=== PATIENT | female | born 1985 | race Caucasian/White ===

== ENCOUNTER 2020-01-29 15:38 | Emergency (ER) | payer OTHER ==
[2020-01-29 15:45] VITALS: TEMP 97.3; BMI 25.9
[2020-01-29] MEDS ORDERED: ACETAMINOPHEN 1000 MG/100 ML VIAL (NON FORMULARY) IVPB ONE (16:09)
[2020-01-29] MEDS ORDERED: ONDANSETRON 4 MG/2 ML VIAL IVPUSH ONE (16:10)
[2020-01-29] MEDS ORDERED: SODIUM CHLORIDE 0.9% 500 ML INFUS.BAG IV ONE (16:12)
[2020-01-29 16:31] LABS: HCG,QUALITATIVE URINE Positive
[2020-01-29 16:33] LABS: EPI CELLS 22 /uL (0-25.1); HYALINE CASTS 1 /uL (0-3.1); URINE APPEARANCE CLEAR; URINE BACTERIA 175 /uL (0-1359); URINE BILIRUBIN NEGATIVE (NEGATIVE); URINE COLOR YELLOW; URINE GLUCOSE (UA) NEGATIVE (NEGATIVE); URINE KETONE 1+ (NEGATIVE); URINE LEUK ESTERASE NEGATIVE (NEGATIVE); URINE NITRITE NEGATIVE (NEGATIVE); URINE PROTEIN NEGATIVE (NEGATIVE); URINE RBC 12 /uL (0-23.9); URINE UROBILINOGEN 0.2 mg/dL (0.2-1.0); URINE WBC 3 /uL (0-25.8)
[2020-01-29 16:37] LABS: BASO % 0.4 % (0-2.0); EOS % 2.9 % (0-4.5); HEMOGLOBIN 11.1 GM/dL (10.7-15.3); LYMPH % 38.2 % (8-40); MCH 29.5 pg (25.7-33.7); MCHC 32.7 g/dl (32.0-36.0); MEAN CELL VOLUME 90.1 fl (80-96); MEAN PLT VOLUME 9.2 fl (7.5-11.1); MONO % 7.6 % (3.8-10.2); NEUT % 50.9 % (42.8-82.8); PLATELET COUNT 247 K/MM3 (134-434); RBC 3.77 M/mm3 (3.60-5.2); RDW 14.9 % (11.6-15.6)
--- NOTE | 2020-01-29 16:38 | PDOC ---
History of Present Illness - General Chief Complaint: Pain Stated Complaint: HIP PAIN Time Seen by Provider: 01/29/20 15:54 History Source: Patient Exam Limitations: No Limitations - History of Present Illness Initial Comments: 01/29/20 16:32 Patient is a 34-year-old female with no past medical history who presents to the ED with 3 hours of left lower quadrant abdominal pain that was sudden in onset. The patient states the pain came out of nowhere and is severe. She has nausea without vomiting. She denies any fevers or chills. She denies any dysuria or hematuria. Her LMP was on 01/14/2020. She states she went to the bathroom last night and noticed some blood on the toilet paper but states she does not have her menses. She denies any back pain. She denies any new sexual partners. She has not taken anything for symptoms. She denies any allergies to medications. Past History - Medical History Allergies/Adverse Reactions: Allergies Allergy/AdvReac Type Severity Reaction Status Date / Time No Known Allergies Allergy Verified 01/29/20 15:43 COPD: No Other medical history: DENIES - Reproductive History Is Patient Now?: No - Immunization History Immunization Up to Date: Yes - Psycho-Social/Smoking History Smoking History: Never smoked - Substance Abuse Hx (Audit-C & DAST Scrn) How often the patient has a drink containing alcohol: Never Score: In Men: 4 or > Positive; In Women: 3 or > Positive: 0 Screen Result (Pos requires Nsg. Audit-10AR): Negative In the last yr the pt used illegal drug/Rx for NonMed reason: No Score: Yes response is considered Positive: 0 Screen Result (Positive result requires Nsg. DAST-10): Negative Review of Systems - Review of Systems Comments:: 01/29/20 16:33 - Review of Systems Able to Perform ROS?: Yes Constitutional: No: Fever, Chills, Loss of Appetite, Night Sweats, Weakness HEENTM: No: Eye Pain, Vision changes, Ear Pain, Throat Pain, Throat Swelling, Mouth Pain, Difficulty Swallowing Respiratory: No: Cough, Shortness of Breath, Wheezing, Sputum Production Cardiac (ROS): No: Chest Pain, Chest Tightness, Palpitations, Irregular Heart Beat, Edema ABD/GI: No: Vomiting, Diarrhea; positive: Left lower quadrant abdominal pain, na usea : No Dysuria, No Hematuria, No Frequency, No Urgency, No Vaginal Discharge/Pain Musculoskeletal: No: Muscle Pain, Back Pain, Joint Pain, Muscle Weakness, Neck Pain Integumentary: No: Lesions, Rash Neurological: No: Headache, Numbness, Tingling, Weakness, Speech Difficulties *Physical Exam - Vital Signs Last Vital Signs Temp Pulse Resp BP Pulse Ox 97.3 F L 60 20 100/36 L 100 01/29/20 15:43 01/29/20 15:43 01/29/20 15:43 01/29/20 15:43 01/29/20 15:43 - Physical Exam 01/29/20 16:34 - Physical Exam General Appearance: Nourished, Appropriately Dressed, No Distress HEENT: EOMI, Normal Voice, Hearing Grossly Normal Neck: Supple, No Lymphadenopathy (R), No Lymphadenopathy (L), No Rigidity, No Decreased range of motion Respiratory/Chest: Lungs Clear, Normal Breath Sounds. No Respiratory Distress, No Accessory Muscle Use Cardiovascular: Regular Rhythm, Regular Rate, S1, S2 Gastrointestinal/Abdominal: Normal Bowel Sounds, Soft. No Rebound, No Rigidity; left lower quadrant abdominal tenderness to palpation with voluntary guarding. No CVA tenderness bilaterally. HUMAN FACTORS SPECIALIST: Thin pink-tinged vaginal discharge with slight foul odor. Cervix is nonfriable appearing. Scant dark blood in the vaginal vault. Positive CMT. On bimanual exam there is significant tenderness to the suprapubic region and bilateral adnexa but left greater than right. No masses or lesions appreciated. Musculoskeletal: Normal Inspection. No Decreased Range of Motion Extremity: Normal Capillary Refill, Normal Inspection Integumentary: Normal Color, Dry. No Rash Neurologic: insurance law specialist II-XII NML intact, Fully Oriented, Alert, Normal Mood/Affect, Normal Response ED Treatment Course - LABORATORY CBC & Chemistry Diagram: 01/29/20 16:25 01/29/20 16:25 - RADIOLOGY Radiology Studies Ordered: Category Date Time Status TRANSVAGINAL ULTRASOUND US [US] Stat Ultrasound 01/29/20 16:10 Ordered Medical Decision Making - Medical Decision Making 01/29/20 16:38 Assessment: Patient is a 34-year-old female with left lower quadrant abdominal pain. Plan: -Labs ordered including a UA, urine culture, gonorrhea and chlamydia -Transvaginal ultrasound ordered to assess for ovarian torsion versus TOA -1 L of NS ordered -Zofran and 1 g of IV Tylenol ordered -Will reassess 01/29/20 17:17 After explained to the patient that her test was positive, she states that she had an abnormal period last month where she spotted for 7 days. The patient is G2, P1001. The patient also states that she saw her primary [facility] about a month ago and was tested for all STDs. She was negative for gonorrhea and chlamydia. She states she did come back positive for herpes but does not have any lesions. 01/29/20 18:11 The patient's ultrasound was read by imaging on-call and the patient is found to have a left ovarian cyst which is possible to be a corpus luteum cyst versus an early developing gestational sac. There is no IUP appreciated. The endometrium was thin not consistent with a . I have spoken to Dr. Nava of [facility] and she states that this is likely a miscarriage versus an early ectopic . She suggest that if the patient is stable she can return to the emergency department in 48 hours for repeat beta-hCG and ultrasound. At that time if the repeat beta-hCG and ultrasound are consistent with ectopic , the on-call [facility] A[facility] should be contacted. Secondary to the patient being stable at this time, this was explained to her and the patient agrees with this treatment and plan. She has been given strict return precautions such as heavy vaginal bleeding, severe pain, dizziness, lightheadedness or any other worsening symptoms. She has been made aware that heavy vaginal bleeding consists of bleeding saturating 1 pad per hour for greater than 4 hours. The patient reiterates her understanding and she is stable for discharge. Discharge - Discharge Information Problems reviewed: Yes Clinical Impression/Diagnosis: Vaginal bleeding during , Encounter for assessment for suspected ectopic Condition: Stable Disposition: HOME - Follow up/Referral Referrals: Hayden Christianson MD [Primary Care Provider] - - Patient Discharge Instructions Patient Printed Discharge Instructions: DI for Vaginal Bleeding During , DI for Ectopic Additional Instructions: You have a concern for an ectopic . There was no seen in your uterus but there was a cyst like structure in the ovary. At this time, you are stable to go home but you must return to the emergency department in 48 hours for a repeat ultrasound and hormone level (beta-hCG). You must return immediately to the emergency department for heavy vaginal bleeding, severe abdominal pain, dizziness, lightheadedness or any other worsening symptoms. Heavy vaginal bleeding is determined by saturating 1 pad per hour for greater than 4 hours. Le preocupa un embarazo ectpico. No se observ ningn embarazo en [place] tero, sneha haba corey estructura similar a un quiste en el ovario. En fernanda momento, est estable para irse a casa, sneha debe regresar al departamento de emergencias en 48 horas para que se repita la ecografa y el nivel hormonal (beta-hCG). Debe regresar inmediatamente al departamento de emergencias por sangrado vaginal abu ndante, dolor abdominal intenso, mareos, aturdimiento o cualquier otro sntoma que empeore. El sangrado vaginal abundante se determina saturando 1 toalla sanitaria por hora jodi ms de 4 horas. Print Language: THAI - Post Discharge Activity
[2020-01-29 17:04] LABS: ALBUMIN 3.9 g/dl (3.4-5.0); BILIRUBIN,TOTAL 0.4 mg/dL (0.2-1); BLOOD UREA NITROGEN 11.9 mg/dL (7-18); CALCIUM 8.6 mg/dL (8.5-10.1); CREATININE 0.5 mg/dL (0.55-1.3); TOT PROT 7.5 g/dl (6.4-8.2)
[2020-01-29 17:10] LABS: INR 1.03 (0.83-1.09); PROTHROMBIN TIME (PATIENT) 12.1 SEC (9.7-13.0)
[2020-01-29 17:12] LABS: ACTIVATED PTT 34.1 SECONDS (25.2-36.5)
[2020-01-29 18:40] VITALS: BP 129/70; PULSE 770
== END 2020-01-29 18:41 | disposition home or self-care (01) ==
LOC: JER 15:38 → JERFT 15:38 → JER 18:41
PROC: 3E0333Z Introduction of Anti-inflammatory into Peripheral Vein, Percutaneous Approach (ICD-10-PCS; principal; 2020-01-29)
PROC: 3E033GC Introduction of Other Therapeutic Substance into Peripheral Vein, Percutaneous Approach (ICD-10-PCS; 2020-01-29)
DX: O26.851 Spotting complicating pregnancy, first trimester (principal)
CPT/HCPCS: 36415; 76830-TC; 80053; 81003; 84702; 84703; 85025; 85610; 85730; 86850; 86900; 86901; 87086; 87491; 87591; 99284-25; J0131

== ENCOUNTER 2020-01-31 12:30 | Emergency (ER) | payer OTHER ==
[2020-01-31 12:37] VITALS: BP 97/61; PULSE 76; TEMP 97.7; BMI 31.1
--- NOTE | 2020-01-31 13:12 | PDOC ---
History of Present Illness - General Chief Complaint: Vaginal Bleeding Stated Complaint: ABD PAIN/VAGINAL BLEEDING Time Seen by Provider: 01/31/20 12:48 History Source: Patient Exam Limitations: No Limitations Past History - Travel History Traveled outside of the country in the last 30 days: No Close contact w/someone who was outside of country & ill: No - Medical History Allergies/Adverse Reactions: Allergies Allergy/AdvReac Type Severity Reaction Status Date / Time No Known Allergies Allergy Verified 01/31/20 12:33 COPD: No - Reproductive History Is Patient Now?: Yes - Immunization History Immunization Up to Date: Yes - Psycho-Social/Smoking History Smoking History: Never smoked Have you smoked in the past 12 months: No - Substance Abuse Hx (Audit-C & DAST Scrn) How often the patient has a drink containing alcohol: Never Score: In Men: 4 or > Positive; In Women: 3 or > Positive: 0 Screen Result (Pos requires Nsg. Audit-10AR): Negative In the last yr the pt used illegal drug/Rx for NonMed reason: No Score: Yes response is considered Positive: 0 Screen Result (Positive result requires Nsg. DAST-10): Negative Review of Systems - Review of Systems Able to Perform ROS?: Yes Comments:: 01/31/20 17:33 CONSTITUTIONAL: Absent: fever, chills, diaphoresis, generalized weakness, malaise, loss of appetite HEENT: Absent: rhinorrhea, nasal congestion, throat pain, throat swelling, difficulty swallowing, mouth swelling, ear pain, eye pain, visual Changes CARDIOVASCULAR: Absent: chest pain, loss of consciousness, palpitations, irregular heart rate, peripheral edema RESPIRATORY: Absent: cough, shortness of breath, dyspnea with exertion, orthopnea, wheezing, stridor, hemoptysis GASTROINTESTINAL: Absent: abdominal pain, abdominal distension, nausea, vomiting, diarrhea, constipation, melena, hematochezia GENITOURINARY: Present: vaginal bleeding/adenexal pain Absent: dysuria, frequency, urgency, hesitancy, hematuria, flank pain, genital pain MUSCULOSKELETAL: Absent: myalgia, arthralgia, joint swelling SKIN: Absent: rash, itching, pallor HEMATOLOGIC/IMMUNOLOGIC: Absent: easy bleeding, easy bruising, lymphadenopathy, frequent infections ENDOCRINE: Absent: unexplained weight gain, unexplained weight loss, heat intolerance, cold intolerance NEUROLOGIC: Absent: headache, focal weakness or paresthesias, dizziness, unsteady gait, seizure, mental status changes, bladder or bowel incontinence PSYCHIATRIC: Absent: anxiety, depression, suicidal or homicidal ideation, hallucinations. Is the patient limited Iranian proficient: No *Physical Exam - Vital Signs Last Vital Signs Temp Pulse Resp BP Pulse Ox 97.7 F 76 16 97/61 100 01/31/20 12:33 01/31/20 12:33 01/31/20 12:33 01/31/20 12:33 01/31/20 12:33 - Physical Exam 01/31/20 17:35 GENERAL: Well developed, well nourished. Awake and alert. No acute distress. HEENT: Normocephalic, atraumatic. PERRLA, EOMI. No conjunctival pallor. Sclera are non- icteric. Moist mucous membranes. Oropharynx is clear. NECK: Supple. Full ROM. No JVD. Carotid pulses 2+ and symmetric, without bruits. No thyromegaly. No lymphadenopathy. CARDIOVASCULAR: Regular rate and rhythm. No murmurs, rubs, or gallops. Distal pulses are 2+ and symmetric. PULMONARY: No evidence of respiratory distress. Lungs clear to auscultation bilaterally. No wheezing, rales or rhonchi. ABDOMINAL: TTP of the L adenexa. Soft. Non-tender. Non-distended. No rebound or guarding. No organomegaly. Normoactive bowel sounds. MUSCULOSKELETAL Normal range of motion at all joints. No bony deformities or tenderness. No CVA tenderness. EXTREMITIES: No cyanosis. No clubbing. No edema. No calf tenderness. SKIN: Warm and dry. Normal capillary refill. No rashes. No jaundice. NEUROLOGICAL: Alert, awake, appropriate. Cranial nerves 2-12 intact. No deficits to light touch and temperature in face, upper extremities and lower extremities. No motor deficits in the in face, upper extremities and lower extremities. Normoreflexic in the upper and lower extremities. Normal speech. Toes are down-going bilaterally. Gait is normal without ataxia. PSYCHIATRIC: Cooperative. Good eye contact. Appropriate mood and affect. Pelvic: External genitalia normal without lesions. Vaginal vault is with thin bright read blood. Cervix is long and closed. No cervical motion tenderness. Uterus is nontender and normal in size. (+) L sided Adnexa tenderness. R adnexa are nontender and without masses. ED Treatment Course - LABORATORY CBC & Chemistry Diagram: 01/31/20 13:00 01/31/20 13:00 - RADIOLOGY Radiology Studies Ordered: Category Date Time Status TRANSVAGINAL US PREG [US] Stat Ultrasound 01/31/20 13:01 Ordered Medical Decision Making - Medical Decision Making 01/31/20 17:11 Patient is 34-year-old female, who presents to the ER for left lower abdominal pain and vaginal bleeding. She states that she was seen 2 days ago and told to return for repeat ultrasound and beta-hCG testing as there was a possible ectopic . She states that she still has the pain and is still having slight bleeding. Denies fevers, chills, nausea, vomiting and diarrhea. A/P: Adnexal pain On exam patient is left-sided adnexal pain. Vaginal exam with thin bright red bloody discharge. Repeat beta and transvaginal ultrasound ordered. Beta increased to 2999 from 2287 No evidence of an IUP at this time. There is a blood clot abutting the left ovary. Lab work is otherwise unremarkable, no evidence of UTI. DERMATOLOGY TECHNICIAN vocational rehabilitation counselor paged 01/31/20 17:[address] Hayes. He thinks that this is most likely a miscarriage rather than an ectopic given patient is still bleeding and that the beta increased 33%. Would not use methotrexate at this time as this is a wanted . States he will follow-up with the patient 2 days in the office. He states that the patient can walk-in if there is no appointment available. All results were explained to the patient, strict return precautions given for still ectopic . I discussed the physical exam findings, ancillary test results and final diagnoses with the patient. I answered all of the patient's questions. The patient was satisfied with the care received and felt comfortable with the discharge plan and treatment plan. The Patient agrees to follow up with the primary care physician/specialist within 24-72 hours. Return precautions were given. Discharge - Discharge Information Problems reviewed: Yes Clinical Impression/Diagnosis: Vaginal bleeding during Condition: Stable Disposition: HOME - Admission No - Follow up/Referral Referrals: Pawan Hayes MD [Staff Physician] - Call tomorrow (Follow up on Friday in the office with Dr. Hayes for miscarriage vs ectopic vs bleeding in early . You may walk in after 2 pm to the office if there is no appointment) - Patient Discharge Instructions Patient Printed Discharge Instructions: DI for Vaginal Bleeding During Additional Instructions: You were seen for your vaginal bleeding today. Your beta hCG increased to 2998. There was still no evidence of an intrauterine . Given that you are still bleeding, it is possible that this is a regular miscarriage. It is imperative that you follow-up with Dr. Hayes on Friday in his offi ce. He is expecting you. Please call the office tomorrow for an appointment on Friday. If there are no appointments available. You may walk into the clinic after 2 PM You may take Tylenol 650 mg every 6 hours as needed for pain. Return to the ER immediately if you experience worsening pain, increased bleeding, vomiting, lightheadedness, weakness or if you have any changes in your symptoms. Hoy te atendieron por tu sangrado vaginal. Rosenthal beta hCG aument a 2998. An no haba evidencia de un embarazo intrauterino. Dado que todava est sangrando, es posible que se trate de un aborto espontneo regular. Es imperativo que boy un seguimiento con el Dr. Hayes el mircoles en [place] oficina. Te est esperando. Llame a la oficina maana para concertar corey palomo el mircoles. Si no hay citas disponibles. Puede entrar a la clnica despus de las 2 p.m. Puede maude Tylenol 650 mg cada 6 horas segn sea necesario para el dolor. Regrese a la vangie de emergencias de inmediato si experimenta un empeoramiento del dolor, aumento del sangrado, vmitos, aturdimiento, debilidad o si tiene algn cambio en [place] sntomas. Print Language: GREENLANDIC - Post Discharge Activity Work/Back to School Note: Back to Work
[2020-01-31 13:41] LABS: BASO % 0.8 % (0-2.0); EOS % 3.5 % (0-4.5); HEMATOCRIT 32.7 % (32.4-45.2); HEMOGLOBIN 10.6 GM/dL (10.7-15.3); MCH 29.5 pg (25.7-33.7); MCHC 32.5 g/dl (32.0-36.0); MEAN CELL VOLUME 90.9 fl (80-96); MEAN PLT VOLUME 10.2 fl (7.5-11.1); MONO % 8.1 % (3.8-10.2); NEUT % 45.6 % (42.8-82.8); PLATELET COUNT 243 K/MM3 (134-434); RDW 14.8 % (11.6-15.6); WHITE BLOOD COUNT 8.1 K/mm3 (4.0-10.0)
[2020-01-31 14:02] LABS: ALBUMIN 3.6 g/dl (3.4-5.0); BILIRUBIN,TOTAL 0.4 mg/dL (0.2-1); BLOOD UREA NITROGEN 7.6 mg/dL (7-18); CALCIUM 8.6 mg/dL (8.5-10.1)
[2020-01-31 14:03] LABS: CREATININE 0.5 mg/dL (0.55-1.3); TOT PROT 7.2 g/dl (6.4-8.2)
[2020-01-31 14:10] LABS: EPI CELLS 4 /uL (0-25.1); HYALINE CASTS 0 /uL (0-3.1); PH,URINE 5.5 (5.0-8.0); URINE APPEARANCE CLEAR; URINE BACTERIA 77 /uL (0-1359); URINE BILIRUBIN NEGATIVE (NEGATIVE); URINE COLOR YELLOW; URINE GLUCOSE (UA) NEGATIVE (NEGATIVE); URINE KETONE NEGATIVE (NEGATIVE); URINE LEUK ESTERASE NEGATIVE (NEGATIVE); URINE NITRITE NEGATIVE (NEGATIVE); URINE PROTEIN NEGATIVE (NEGATIVE); URINE RBC 6 /uL (0-23.9); URINE UROBILINOGEN 0.2 mg/dL (0.2-1.0); URINE WBC 6 /uL (0-25.8)
== END 2020-01-31 18:30 | disposition home or self-care (01) ==
LOC: JER 12:30
DX: O26.851 Spotting complicating pregnancy, first trimester (principal)
CPT/HCPCS: 36415; 76817-TC; 80053; 81003; 84702; 85025; 86850; 86900; 86901; 87086; 99284-25

== ENCOUNTER 2020-02-03 14:07 | Day surgery (SDC) | payer OTHER ==
[2020-02-03 14:21] VITALS: BMI 31.1
--- NOTE | 2020-02-03 15:36 | PDOC ---
History of Present Illness - General Chief Complaint: Vaginal Bleeding Stated Complaint: 3WK CT/ABD PAIN Time Seen by Provider: 02/03/20 14:59 History Source: Patient Exam Limitations: Clinical Condition - History of Present Illness Initial Comments: 02/03/20 16:06 Patient with no significant past medical history sent in by [facility] for possible D&C due to having vaginal bleeding at 6 weeks gestational age. Patient was seen 5 days ago for same symptoms and beta hCG was 2260 and repeat beta hcg 48 hours later was 2996. Patient was advised to follow-up with [facility] office and saw Dr. Joanie Glynn in office today and was advised to come to the emergency room for possible D&C as she might be still miscarriaging. Denies palpitation, dizziness, fever, chills. Denies any other symptoms Is this a multiple visit Asthma Patient?: No Past History - Medical History Allergies/Adverse Reactions: Allergies Allergy/AdvReac Type Severity Reaction Status Date / Time No Known Allergies Allergy Verified 02/03/20 14:16 COPD: No - Reproductive History Is Patient Now?: Yes - Immunization History Immunization Up to Date: Yes - Psycho-Social/Smoking History Smoking History: Never smoked Have you smoked in the past 12 months: No - Substance Abuse Hx (Audit-C & DAST Scrn) How often the patient has a drink containing alcohol: Never Score: In Men: 4 or > Positive; In Women: 3 or > Positive: 0 Screen Result (Pos requires Nsg. Audit-10AR): Negative In the last yr the pt used illegal drug/Rx for NonMed reason: No Score: Yes response is considered Positive: 0 Screen Result (Positive result requires Nsg. DAST-10): Negative Review of Systems - Review of Systems Able to Perform ROS?: Yes Is the patient limited Estonian proficient: No Constitutional: No: Chills, Diaphoresis, Fever, Malaise HEENTM: No: Symptoms Reported, See HPI, Eye Pain, Blurred Vision, Tearing, Recent change in vision, Double Vision, Cataracts, Ear Pain, Ocular Prothesis, Ear Discharge, Nose Pain, Nose Congestion, Tinnitus, Nose Bleeding, Hearing Loss, Throat Pain, Throat Swelling, Mouth Pain, Dental Problems, Difficulty Swallowing, Mouth Swelling, Other Respiratory: No: Symptoms reported, See HPI, Cough, Orthopnea, Shortness of Breath, SOB with Exertion, SOB at Rest, Stridor, Wheezing, Productive cough, Hemoptysis, Other Cardiac (ROS): No: Symptoms Reported, See HPI, Chest Pain, Edema, Irregular Heart Rate, Lightheadedness, Palpitations, Syncope, Chest Tightness, Other ABD/GI: No: Symptoms Reported, Constipated, Diarrhea, Nausea, Vomiting, Abdominal cramping : Yes: Symptoms Reported, See HPI, Other (vaginal bleeding). No: Burning, Dysuria Musculoskeletal: No: Symptoms Reported, See HPI Integumentary: No: Symptoms Reported, Rash Neurological: No: Symptoms reported, Headache, Dizziness All Other Systems: Reviewed and Negative *Physical Exam - Vital Signs Last Vital Signs Temp Pulse Resp BP Pulse Ox 97.8 F 71 18 97/62 100 02/03/20 14:17 02/03/20 14:17 02/03/20 14:17 02/03/20 14:17 02/03/20 14:17 - Physical Exam General Appearance: Yes: Nourished, Appropriately Dressed. No: Apparent Distress HEENT: positive: Normal ENT Inspection Neck: negative: Supple Respiratory/Chest: positive: Lungs Clear, Normal Breath Sounds. negative: Chest Tender, Respiratory Distress, Accessory Muscle Use Cardiovascular: positive: Regular Rhythm, Regular Rate Female Pelvic Exam: positive: normal external exam, cervical os closed (cervical os open at fingertip with internal os closed), vaginal bleeding (small amount of dark blood in vaginal vault), other. negative: discharge, adnexal tenderness Gastrointestinal/Abdominal: positive: Normal Bowel Sounds, Flat. negative: Tender Musculoskeletal: positive: Normal Inspection. negative: CVA Tenderness Extremity: positive: Normal Inspection, Normal Range of Motion Integumentary: positive: Normal Color Neurologic: positive: Fully Oriented, Alert, Normal Mood/Affect, Normal Response, Motor Strength 5/5 Medical Decision Making - Medical Decision Making 02/03/20 16:07 Patient with no significant past medical history sent in by [facility] for possible D&C due to having vaginal bleeding at 6 weeks gestational age. Patient was seen 5 days ago for same symptoms and beta hCG was 2260 and repeat beta hcg 48 hours later was 2996. Patient was advised to follow-up with [facility] office and saw Dr. Joanie Glynn in office today and was advised to come to the emergency room for possible D&C as she might be still miscarriaging. Denies palpitation, dizziness, fever, chills. Denies any other symptoms Exam significant for small amount of dark blood in vaginal vault with no active vaginal bleeding. Cervical os open at fingertip and internal os closed. No blood pooling in vaginal vault. Called and spoke to [facility] Dr Nair who confirmed she sent patient in for D&C. Discussed with Dr. Nair that patient does get sent to the emergency room for D&C unless its medical emergency and needs to be followed outpatient for D&C if not a medical emergency. Dr Nair request to do repeat beta-hCG and ultrasound and consult pulmonary physician [facility] as she does not take calls in this hospital for follow-up management of vaginal bleeding. Repeat beta-hCG and transvaginal ultrasound ordered. Will consult on-call [facility] for management 02/03/20 18:08 Beta-hCG is 4100. Transvaginal ultrasound read by radiologist shows gestational sac in left adnexa consistent with ectopic . Call made to HOTEL MAINTENANCE TECHNICIAN Dr. Hurley about ultrasound findings and beta-hCG. Dr. Hurley coming to the ED to see patient 02/03/20 18:[address] Hurley who will take pt to OR for management of left ectopic. pre-op labs ordered Discharge - Discharge Information Problems reviewed: Yes Clinical Impression/Diagnosis: Ectopic of left ovary Condition: Stable Disposition: HOME - Admission Yes - Follow up/Referral Referrals: Gretta Nair MD [Staff Physician] - - Patient Discharge Instructions - Post Discharge Activity
--- OUTSIDE RECORDS SUMMARY | 2020-02-03 15:57 | XMS ---
:1985 Author Organization [facility] Support Name Relationship Address Phone LAVELLE HARDY Unavailable [address] [facility] [address] SANTIAGO DAMIAN [address] [place] [address] SANTIAGO DAMIAN Spouse [address] [place] [address] Re-disclosure Warning The records that you are about to access may contain information from federally- assisted alcohol or drug abuse programs. If such information is present, then the following federally mandated warning applies: This information has been disclosed to you from records protected by federal confidentiality rules (42 CFR part 2). The federal rules prohibit you from making any further disclosure of this information unless further disclosure is expressly permitted by the written consent of the person to whom it pertains or as otherwise permitted by 42 CFR part 2. A general authorization for the release of medical or other information is NOT sufficient for this purpose. The Federal rules restrict any use of the information to criminally investigate or prosecute any alcohol or drug abuse patient.The records that you are about to access may contain highly sensitive health information, the redisclosure of which is protected by Article 27-F of the [facility] Public Health law. If you continue you may haveaccess to information: Regarding HIV / AIDS; Provided by facilities licensed or operated by the [facility] Office of Mental Health; or Provided by the [facility] Office for People With Developmental Disabilities. If such information is present, then the following [facility] mandated warning applies: This information has been disclosed to you from confidential records which are protected by state law. State law prohibits you from making any further disclosure of this information without the specific written consent of the person to whom it pertains, or as otherwise permitted by law. Any unauthorized further disclosure in violation of state law may result in a fine or [place] [facility] sentence or both. A general authorization for the release of medical or other information is NOT sufficient authorization for further disclosure. Insurance Providers Payer name Policy type Policy ID Covered Covered republican's Policy P marcus / Coverage republican ID relationship to Ambrosio Inf ormation type ambrosio LAUREN [id number] [address] [place] [address] CAP
[2020-02-03 18:45] LABS: BASO % 0.8 % (0-2.0); HEMATOCRIT 34.2 % (32.4-45.2); HEMOGLOBIN 11.4 GM/dL (10.7-15.3); LYMPH % 45.3 % (8-40); MCHC 33.2 g/dl (32.0-36.0); MEAN CELL VOLUME 90.3 fl (80-96); MEAN PLT VOLUME 10.4 fl (7.5-11.1); MONO % 7.1 % (3.8-10.2); NEUT % 44.8 % (42.8-82.8); PLATELET COUNT 279 K/MM3 (134-434); RBC 3.79 M/mm3 (3.60-5.2); RDW 14.8 % (11.6-15.6); WHITE BLOOD COUNT 8.1 K/mm3 (4.0-10.0)
--- NOTE | 2020-02-03 18:49 | HP ---
Past Medical History - Primary Care Physician PCP:: Jorje Hurley - Admission Chief Complaint: LLQ pain, vaginal bleeding , lt tubal ectopic History of Present Illness: 34 yof with one previous c/s , has HCG 4000, tvs RT tubal ectopic with gestational sac , has mild on and off vaginal bleeding and LLQ pain, no dizziness History Source: Patient Limitations to Obtaining History: Language Barrier - Past Medical History ...: 2 ...Para: 1 ...: 1 - Past Surgical History Past Surgical History: Yes: Hx Myomectomy: No Hx Transabdominal Cerclage: No - Smoking History Smoking history: Never smoked Have you smoked in the past 12 months: No - Alcohol/Substance Use Hx Alcohol Use: No - Social History Usual Living Arrangement: Yes: With Spouse History of Recent Travel: No Home Medications - Allergies Allergies/Adverse Reactions: Allergies Allergy/AdvReac Type Severity Reaction Status Date / Time No Known Allergies Allergy Verified 02/03/20 14:16 Review of Systems - Review of Systems Constitutional: reports: No Symptoms Eyes: reports: No Symptoms HENT: reports: No Symptoms Neck: reports: No Symptoms Cardiovascular: reports: No Symptoms Respiratory: reports: No Symptoms Gastrointestinal: reports: Other (llq pain) Genitourinary: reports: No Symptoms Breasts: reports: No Symptoms Reported Musculoskeletal: reports: No Symptoms Integumentary: reports: No Symptoms Neurological: reports: No Symptoms Endocrine: reports: No Symptoms Hematology/Lymphatic: reports: No Symptoms Psychiatric: reports: No Symptoms 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 Vital Signs: Vital Signs Temperature 97.8 F 02/03/20 14:17 Pulse Rate 71 02/03/20 14:17 Respiratory Rate 18 02/03/20 14:17 Blood Pressure 97/62 02/03/20 14:17 O2 Sat by Pulse Oximetry (%) 100 02/03/20 14:17 Constitutional: Yes: Well Nourished, No Distress, Calm Eyes: Yes: WNL, Conjunctiva Clear, EOM Intact HENT: Yes: WNL, Atraumatic, Normocephalic Neck: Yes: WNL, Supple, Trachea Midline Cardiovascular: Yes: WNL, Regular Rate and Rhythm Respiratory: Yes: WNL, Regular, CTA Bilaterally Gastrointestinal: Yes: WNL ...Rectal Exam: Yes: WNL Renal/: Yes: WNL External Genitalia: Yes: Normal Internal Exam Deferred: Yes Breast(s): Yes: WNL Musculoskeletal: Yes: WNL Extremities: Yes: WNL Integumentary: Yes: WNL Neurological: Yes: WNL, Alert, Oriented ...Motor Strength: WNL Psychiatric: Yes: WNL, Alert, Oriented Problem List - Problem (1) Left tubal Code(s): O00.102 - LEFT TUBAL WITHOUT INTRAUTERINE Qualifiers: Intrauterine status: without intrauterine Qualified Code(s): O00.102 - Left tubal without intrauterine Assessment/Plan admit surgical vs medical tx discussed with patient , risks and benfit of each explained . patient requesting to have surgery , aware salpingectomy can reduce risks of future risks of infection, bleeding , injury to surrounding tissue, bowel, bladder , vessels discussed , post op complication and disability explained
[2020-02-03] MEDS ORDERED: LACTATED RINGERS SOLUTION 1,000 ML IV SCH (19:00)
--- OUTSIDE RECORDS SUMMARY | 2020-02-03 19:04 | XMS ---
:1985 Author Organization [facility] Support Name Relationship Address Phone LAVELLE HARDY Unavailable [address] [facility] [place] [address] SANTIAGO DAMIAN [address] [place] [address] SANTIAGO DAMIAN Spouse [address] [place] [address] Re-disclosure Warning The records that you are [...] is protected by Article 27-F of the [facility] Public Health law. If you continue you may haveaccess to information: Regarding HIV / AIDS; Provided by facilities licensed or operated by the [facility] Office of Mental Health; or Provided by the [facility] Office for People With Developmental Disabilities. If such information is present, then the following [facility] mandated warning applies: This information has [...] law may result in a fine or half-way sentence or both. A general authorization for the release of medical or other information is NOT sufficient authorization for further disclosure. Insurance Providers Payer name Policy type Policy ID Covered Covered green party's Policy P marcus / Coverage green party ID relationship to Ambrosio Inf ormation type ambrosio LAUREN [id number] [address] [place] [address] CAP
[2020-02-03] MEDS ORDERED: PROPOFOL 20 ML ONE ×2 (19:09)
[2020-02-03] MEDS ORDERED: SUCCINYLCHOLINE CHLORIDE 200 MG/10 ML SYRINGE ONE ×2 (19:10→19:11)
[2020-02-03] MEDS ORDERED: ROCURONIUM BROMIDE 50 MG/5 ML SYRINGE ONE (19:10)
[2020-02-03] MEDS ORDERED: MIDAZOLAM HCL 2 MG/2 ML SINGLE DOSE VIAL ONE (19:10)
[2020-02-03] MEDS ORDERED: BUPIVACAINE HCL/PF 0.25% (2.5MG/ML) 10 ML VIAL ONE (19:13)
[2020-02-03 19:21] LABS: INR 1.08 (0.83-1.09); PROTHROMBIN TIME (PATIENT) 12.7 SEC (9.7-13.0)
[2020-02-03 19:23] LABS: ACTIVATED PTT 35.9 SECONDS (25.2-36.5)
[2020-02-03] MEDS ORDERED: ceFAZolin 2 GRAM PREMIX BAG IVPB ONE (19:45)
[2020-02-03] MEDS ORDERED: EPHEDRINE SULFATE/0.9% NACL/PF 50 MG/10 ML SYRINGE NR ONE (20:05)
[2020-02-03] MEDS ORDERED: ePHEDrine SULFATE 50 MG/1 ML AMPULE ONE (20:05)
[2020-02-03] MEDS ORDERED: GLYCOPYRROLATE 0.2 MG/1 ML VIAL ONE ×2 (20:06→20:35)
[2020-02-03] MEDS ORDERED: NEOSTIGMINE METHYLSULFATE 0.5 MG/ML - 10 ML MDV ONE (20:35)
[2020-02-03] MEDS ORDERED: oxyCODONE HCL 5 MG TABLET PO PRN (21:15)
[2020-02-03] MEDS ORDERED: IBUPROFEN 600 MG TABLET (FP) PO PRN (21:15)
[2020-02-03] MEDS ORDERED: ONDANSETRON 4 MG/2 ML VIAL IVPUSH PRN (21:15)
[2020-02-03] MEDS ORDERED: ELECTROLYTE-148 SOLN 1,000 ML IV SCH (21:15)
[2020-02-03] MEDS ORDERED: IBUPROFEN 800 MG/8 ML IJ IVPB PRN (21:15)
--- NOTE | 2020-02-03 21:24 | OP ---
Operative Note - Note: Operative Date: 02/03/20 Pre-Operative Diagnosis: lt tubal ectopic Operation: laparoscopy LT salpingectomy Findings: dense pelvic adhesions, LT tubal ectopic Surgeon: Jorje Hurley Potato Sorter: Salvatore Harry Anesthesia: General Specimens Removed: lt fallopian tube Estimated Blood Loss (mls): 25 Drains & Tubes with Location: none Drains, Volume Out (mls): 600 Blood Volume Replaced (mls): 0 Fluid Volume Replaced (mls): 1,200 Operative Report Dictated: Yes
--- NOTE | 2020-02-03 23:24 | OP ---
DATE OF OPERATION: 02/03/2020 PREOPERATIVE DIAGNOSIS: Left tubal ectopic . POSTOPERATIVE DIAGNOSIS: Left tubal ectopic . PROCEDURE: Laparoscopic left salpingectomy. SURGEON: Jorje uHrley MD. COOLER CONVEYOR LOADER: ALLISON Hartman. ANESTHESIA: General. ESTIMATED BLOOD LOSS: 25 mL. DESCRIPTION OF PROCEDURE: Patient was taken to operating room, where under adequate general anesthesia in dorsal lithotomy position examination under anesthesia revealed external genitalia to be normal, vagina was normal, cervix was clean, no gross lesion, uterus was normal size, adnexa no masses palpable. Then with Hulka clamp inserted into uterine cavity for manipulation, Boss was inserted. Patient was prepped and draped for laparoscopy. A small infraumbilical incision was made. Veress needle was introduced. Pneumoperitoneum was established. Then with a direct Visiport and trocar was inserted into the abdomen, and then scope was introduced. Uterus was adherent to the anterior abdominal wall, and then the multiple omental bowel adhesions to the anal cul-de-sac and pelvic side wall, the left tube was ectopic was seen, but the tube was stuck in a herniated space next to the left broad ligament. This time 5-mm trocar was introduced through the right epigastric and a 10-mm through the left epigastric under direct vision, and then the left tube was grasped with a grasper and then with the LigaSure bipolar cautery the tube was cauterized and the mesosalpinx and tube was removed and then a bag was reintroduced, and the tube was inserted into the bag and removed. Pelvic cavity several times irrigated no active bleeding was seen. The other ovary and tube appeared to be normal. Then pelvic cavity washed and no bleeding was seen. Abdomen was then then the left hypogastric incision, fascia was grasped with the Prince clamp and sutured with 2 interrupted sutures with the 0 Vicryl, and then the umbilical area and the right epigastric also sutured with the interrupted suture of 0 Vicryl, and the skin was brought together with Dermabond glue. Patient tolerated the procedure well, left the OR in good condition. Diandra [id number]
--- NOTE | 2020-02-04 07:42 | PN ---
Progress Note (short form) - Note Progress Note: pod 1 has mild incisional discomfort, voids ok Last Vital Signs Temp Pulse Resp BP Pulse Ox 98.6 F 66 16 94/57 L 100 02/04/20 06:18 02/04/20 06:18 02/04/20 06:18 02/04/20 06:18 02/04/20 06:18 Last Vital Signs Temp Pulse Resp BP Pulse Ox 98.6 F 66 16 94/57 L 100 02/04/20 06:18 02/04/20 06:18 02/04/20 06:18 02/04/20 06:18 02/04/20 06:18 abdomen soft,n0 distension, , BS are present no calf tenderness plan ambulate , cbc d/c home follow up with her kier hand one week Problem List - Problems (1) Left tubal Code(s): O00.102 - LEFT TUBAL WITHOUT INTRAUTERINE Qualifiers: Intrauterine status: without intrauterine Qualified Code(s): O00.102 - Left tubal without intrauterine
[2020-02-04 08:10] LABS: HEMATOCRIT 32.3 % (32.4-45.2); HEMOGLOBIN 10.7 GM/dL (10.7-15.3); MCH 29.4 pg (25.7-33.7); MEAN PLT VOLUME 9.8 fl (7.5-11.1); PLATELET COUNT 256 K/MM3 (134-434); RBC 3.63 M/mm3 (3.60-5.2); RDW 14.4 % (11.6-15.6); WHITE BLOOD COUNT 6.3 K/mm3 (4.0-10.0)
[2020-02-04 11:46] VITALS: BP 99/54; PULSE 73; TEMP 98.2
--- NOTE | 2020-02-07 15:49 | PATH ---
Surgical Pathology Report Patient Name: EDDIE KENNEDY [facility]. Rec. #: [id number] /Age/Gender: 1985 (Age: 34) / F Account: [id number] Location: AMBULATORY SURG Taken: 02/03/2020 Received: 02/04/2020 Reported: 02/07/2020 Physicians: Jorje Hurley M.D. Specimen(s) Received LEFT FALLOPIAN TUBE Clinical History Ectopic , left fallopian tube Final Diagnosis LEFT FALLOPIAN TUBE, SALPINGECTOMY: CHORIONIC VILLI PRESENT, CONSISTENT WITH ECTOPIC TUBAL . Electronically Signed Hasmukh Velasco M.D. Gross Description Received in formalin labeled "left fallopian tube," is a 5.3 cm in length focally dilated, fimbriated fallopian tube. The outer surface is harding purple and smooth. Sectioning reveals a focal dilatation containing blood clot. No definitive villous tissue or somatic tissue is identified. Reporter Anchor sections are submitted in 3 cassettes as follows: 1-fimbria; 9-4-deceotwxyy with blood clot. /02/04/2020 [facility]02/04/2020
== END 2020-02-04 12:38 | disposition home or self-care (01) ==
LOC: JER 14:07 → JASUSAT 18:34 → J7W 22:17 → JASUSAT 02-04 12:38
PROVIDERS: ATTEND Obstetrics & Gynecology
PROC: 0UT64ZZ Resection of Left Fallopian Tube, Percutaneous Endoscopic Approach (ICD-10-PCS; 2020-02-03)
PROC: 10T24ZZ Resection of Products of Conception, Ectopic, Percutaneous Endoscopic Approach (ICD-10-PCS; principal; 2020-02-03 20:00)
DX: O00.102 Left tubal pregnancy without intrauterine pregnancy (principal)
CPT/HCPCS: 36415; 76817-TC; 84702; 85025; 85027; 85610; 85730; 86850; 86900; 86901; 88305-TC; 94760; C9803; U0003

== ENCOUNTER 2021-01-04 09:35 | Emergency (ER) | payer OTHER ==
[2021-01-04 10:08] VITALS: BMI 24.5
[2021-01-04 10:43] LABS: BASO % 0.5 % (0-2.0); EOS % 1.9 % (0-4.5); HEMATOCRIT 32.8 % (32.4-45.2); HEMOGLOBIN 11.2 GM/dL (10.7-15.3); LYMPH % 27.5 % (8-40); MCH 30.5 pg (25.7-33.7); MCHC 34.2 g/dl (32.0-36.0); MEAN CELL VOLUME 89.1 fl (80-96); MONO % 8.3 % (3.8-10.2); NEUT % 61.8 % (42.8-82.8); PLATELET COUNT 251 10^3/uL (134-434); RBC 3.69 M/mm3 (3.60-5.2); RDW 14.3 % (11.6-15.6); WHITE BLOOD COUNT 6.9 K/mm3 (4.0-10.0)
[2021-01-04 11:15] LABS: BILIRUBIN,TOTAL 0.2 mg/dL (0.2-1)
[2021-01-04] MEDS ORDERED: SODIUM CHLORIDE 0.9% 1000 ML INFUS.BAG IV ONE (11:15)
[2021-01-04 11:40] LABS: BLOOD UREA NITROGEN 6.7 mg/dL (7-18); CALCIUM 8.8 mg/dL (8.5-10.1); CREATININE 0.5 mg/dL (0.55-1.3); TOT PROT 6.7 g/dl (6.4-8.2)
[2021-01-04 12:06] VITALS: TEMP 97.6
[2021-01-04 13:18] VITALS: BP 97/55; PULSE 72
== END 2021-01-04 13:21 | disposition home or self-care (01) ==
LOC: JER 09:35
DX: O26.892 Other specified pregnancy related conditions, second trimester (principal); R42 Dizziness and giddiness; Z3A.16 16 weeks gestation of pregnancy
CPT/HCPCS: 36415; 80053; 85025; 86850; 86900; 86901; 93005; 93010; 99284-25

== ENCOUNTER 2022-07-10 14:34 | Emergency (ER) | payer OTHER ==
[2022-07-10 14:50] VITALS: RESP 16; BMI 26.1
[2022-07-10] MEDS ORDERED: ACETAMINOPHEN 1000 MG/100 ML BAG IVPB ONE (15:11)
[2022-07-10] MEDS ORDERED: METOCLOPRAMIDE HCL INJECTION 10 MG/2 ML VIAL IVPUSH ONE (15:11)
[2022-07-10] MEDS ORDERED: SODIUM CHLORIDE 0.9% 500 ML INFUS.BAG IV ONE (15:11)
[2022-07-10] MEDS ORDERED: KETOROLAC TROMETHAMINE 30 MG/1 ML VIAL IVPUSH ONE (15:11)
[2022-07-10] MEDS ORDERED: ACETAMINOPHEN INJECTION 100 ML IVPB ONE (15:46)
[2022-07-10] MEDS ORDERED: KETOROLAC TROMETHAMINE 30 MG/1 ML VIAL ONE (15:46)
[2022-07-10] MEDS ORDERED: METOCLOPRAMIDE HCL INJECTION 10 MG/2 ML VIAL ONE (15:46)
[2022-07-10 16:19] LABS: BASO % 1.1 % (0-2.0); EOS % 3.5 % (0-4.5); HEMATOCRIT 38.9 % (32.4-45.2); HEMOGLOBIN 12.4 GM/dL (10.7-15.3); LYMPH % 40.7 % (8-40); MCH 27.7 pg (25.7-33.7); MCHC 31.7 g/dl (32.0-36.0); MEAN CELL VOLUME 87.1 fl (80-96); MEAN PLT VOLUME 10.1 fl (7.5-11.1); MONO % 7.1 % (3.8-10.2); NEUT % 47.6 % (42.8-82.8); PLATELET COUNT 275 10^3/uL (134-434); RBC 4.47 M/mm3 (3.60-5.2); RDW 14.2 % (11.6-15.6); WHITE BLOOD COUNT 8.3 K/mm3 (4.0-10.0)
[2022-07-10 16:28] LABS: HCG,QUALITATIVE URINE Negative
[2022-07-10 16:29] LABS: EPI CELLS 8 /uL (0-25.1); HYALINE CASTS 0 /uL (0-3.1); PH,URINE 5.5 (5.0-8.0); URINE APPEARANCE CLEAR; URINE BACTERIA 47 /uL (0-1359); URINE BILIRUBIN NEGATIVE (NEGATIVE); URINE COLOR YELLOW; URINE GLUCOSE (UA) NEGATIVE (NEGATIVE); URINE KETONE NEGATIVE (NEGATIVE); URINE LEUK ESTERASE NEGATIVE (NEGATIVE); URINE NITRITE NEGATIVE (NEGATIVE); URINE PROTEIN NEGATIVE (NEGATIVE); URINE RBC 12 /uL (0-23.9); URINE UROBILINOGEN 0.2 mg/dL (0.2-1.0); URINE WBC 3 /uL (0-25.8)
[2022-07-10 16:39] LABS: CALCIUM 9.1 mg/dL (8.5-10.1)
[2022-07-10 16:40] LABS: BLOOD UREA NITROGEN 12.8 mg/dL (7-18); MAGNESIUM 2.1 mg/dL (1.8-2.4)
[2022-07-10 16:43] LABS: CREATININE 0.6 mg/dL (0.55-1.3)
[2022-07-10 17:10] VITALS: BP 96/61; PULSE 73; TEMP 97.6
== END 2022-07-10 18:05 | disposition home or self-care (01) ==
LOC: JER 14:34
PROC: 3E033NZ Introduction of Analgesics, Hypnotics, Sedatives into Peripheral Vein, Percutaneous Approach (ICD-10-PCS; principal; 2022-07-10)
PROC: 3E033GC Introduction of Other Therapeutic Substance into Peripheral Vein, Percutaneous Approach (ICD-10-PCS; 2022-07-10)
PROC: 3E0333Z Introduction of Anti-inflammatory into Peripheral Vein, Percutaneous Approach (ICD-10-PCS; 2022-07-10)
PROC: 3E033GC Introduction of Other Therapeutic Substance into Peripheral Vein, Percutaneous Approach (ICD-10-PCS; 2022-07-10)
DX: R51.9 Headache, unspecified (principal); R11.0 Nausea
CPT/HCPCS: 36415; 80048; 81003; 83735; 84703; 85025; 87086; 99284-25